=== PATIENT | female | born 1985 | race Caucasian/White ===

== ENCOUNTER 2017-12-11 15:31 | Outpatient (CLI) | payer MEDICAID, SELFPAY ==
[2017-12-11 16:31] LABS: Abs Immature Grans 0.01 k/cumm (0.0-0.09); Absolute Basophil Count 0.02 k/cumm (0.0-0.2); Absolute Eosinophil Count 0.04 k/cumm (0.0-0.7); Absolute Lymphocyte Count 1.44 k/cumm (1.2-3.4); Absolute Monocyte Count 0.35 k/cumm (0.11-0.7); Absolute Neutrophil Count 7.02 k/cumm (1.2-6.7); Basophils % 0.2; Eosinophils % 0.5; HCT 41.5 % (36.0-46.0); HGB 13.9 g/dL (12.0-15.5); Immature Grans % 0.1; Lymphocytes % 16.2; Mean Corp. HGB Concentration 33.5 g/dL (32.0-36.0); Mean Corpuscular Volume 92.4 fL (80-95); Mean Platelet Volume 10.5 fL (8.0-11.0); Monocytes % 3.9; Neutrophils % 79.1; Platelet Count 295 x1000/uL (130-400); RBC 4.49 m/cumm (4.00-5.20); RBC Distribution Width 12.9 % (11.7-14.6); White Blood Cell Count 8.88 k/cumm (4.4-10.8)
[2017-12-11 17:43] LABS: TSH (W/Ref FT4) 0.67 uIU/mL (0.358-3.74)
[2017-12-13 12:19] LABS: Hepatitis B Surface Ag Negative (NEGAT)
[2017-12-13 12:21] LABS: HIV-1/2 Ag & Ab Screen Negative (NEGAT)
[2017-12-13 12:30] LABS: Rubella IgG Ab (UVM) Negative
[2017-12-13 12:39] LABS: Syphilis Serology (RPR) Negative (Negative); Varicella IgG Antibody Positive
[2017-12-13 13:28] LABS: Hepatitis C Ab w Rflx HCV PCR Negative (NEGAT)
== END 2017-12-11 15:51 ==
PROVIDERS: PCP Naturopath; Visit Provider Obstetrics & Gynecology
DX: Z34.91 Encounter for supervision of normal pregnancy, unspecified, first trimester (principal); Z11.59 Encounter for screening for other viral diseases; Z01.84 Encounter for antibody response examination; Z11.4 Encounter for screening for human immunodeficiency virus [HIV]
CPT/HCPCS: 36415; 86787; 86803; 86850; 86900; 86901; 87340; 87389; 84443; 85025; 86592; 86762

== ENCOUNTER 2017-12-20 16:51 | Outpatient (REF) | payer MEDICAID, SELFPAY ==
--- NOTE | 2017-12-20 13:30 | PAPFT_PTH ---
PATIENT: Quin Durant LOC: [facility] U#:[id number] AGE/SX: 32/F ROOM: RE12/20/[address]: Tamar Vazquez CNM : 1985 BED: DIS: 12/20/2017 SPEC #: [id number] RECD: 12/20/17 17:56 STATUS: SULEIMANOctavio REStephen #: [id number] SHANTE: 12/20/17 13:[address]: Tamar Vazquez DEPT: [facility] Cytology RECD BY: Ingrid Powell ENTERED: 12/20/17 17:57 SP TYPE: PAPFT OTHR DR: Gayatri Cohen Tissues: 1 - CX/ENDOCX FOR PAP SMEARS Procedures: PAP THIN PREP/UVM Screening HPV DNA PROBE Comments: [id number]
[2017-12-20 17:49] LABS: Tricyclic Antidepressants Negative (Negative)
[2017-12-20 17:50] LABS: *AMPHETAMINES SCREEN URINE Negative (Negative); *BARBITURATES SCREEN URINE Negative (Negative); *BENZODIAZEPINES SCREEN URINE Negative (Negative); Cannabinoids THC Negative (Negative); Cocaine Screen,Urine Negative (Negative); METHADONE URINE SCREEN Negative (Negative); OPIATES URINE SCREEN Negative (Negative)
[2017-12-24 15:02] LABS: Chlamydia Result Negative; GC Result Negative; Specimen Description CERVIX
[2017-12-24 15:24] LABS: Buprenorphine Negative; Norbuprenorphine Negative
== END 2017-12-20 17:11 ==
LOC: LBN 16:51
PROVIDERS: PCP Naturopath; Visit Provider Advanced Practice Midwife
DX: Z12.4 Encounter for screening for malignant neoplasm of cervix (principal); Z11.51 Encounter for screening for human papillomavirus (HPV); Z11.3 Encounter for screening for infections with a predominantly sexual mode of transmission; Z34.91 Encounter for supervision of normal pregnancy, unspecified, first trimester
CPT/HCPCS: 80307; 87491; 87591; 88142; 87086; 87624

== ENCOUNTER 2018-02-11 15:56 | Outpatient (CLI) | payer MEDICAID, SELFPAY ==
[2018-02-13 15:44] LABS: AFP 37.8 ng/mL; Cigarette smoking status non-smoker; GA used in risk estimate Scan estimate; INHIBIN 74 pg/mL; IVF Pregnancy No; Initial or repeat testing Initial testing; Insulin dependent diabetes No; Maternal Weight 145 lbs; Number of Fetuses 1; Physician Phone Number 802-748-7300; Prev Down(T21)/Trisomy Pregnan No; Prev Pregnancy w/NTD No; RECOMMENDED FOLLOW UP None.; Results Summary Normal risk; hCG, TOTAL 8.7 IU/mL; hCG, TOTAL MoM 0.38 MoM; uE3 1.79 ng/mL; uE3 MoM 1.19 MoM
== END 2018-02-11 16:16 ==
PROVIDERS: PCP Naturopath; Visit Provider Advanced Practice Midwife
DX: Z34.92 Encounter for supervision of normal pregnancy, unspecified, second trimester (principal); Z36.89 Encounter for other specified antenatal screening
CPT/HCPCS: 36415; 81511

== ENCOUNTER 2018-02-15 00:24 | Outpatient (CLI) | payer MEDICAID, SELFPAY ==
--- NOTE | 2018-02-15 15:36 | DI.US_ITS ---
SYMPTOM/DIAGNOSIS: 18 WEEK ANATOMY, WEEK OF 02/10 OB ULTRASOUND: There is a single living intrauterine gestation. Estimated sonographic age is 18 weeks 6 days. No or placental abnormalities are identified. IMPRESSION: Single living intrauterine gestation. Estimated sonographic age is 18 weeks 6 days. Many abnormalities cannot be diagnosed. A normal exam does not exclude a congenital anomaly. Radiology No. [id number] LMP: 10/06/17 Exam Date: [facility] wks days on EDC ([facility]) 07/13/18 Confirmed: HISTORY: SURVEY ---- PREDICTED GESTATIONAL AGE NUMBER 18 +6 weeks with a range of 17 +6 week to 19 +6 weeks. 1 Determined by_XX__1STUS___LMP___HISTORY Info. pertaining to fetus # PLACENTA PRESENTATION Grade 1 Cephalic___ Anterior___Posterior_XX__ Breech____ Right Left Transverse(head right___ Fundal___Low-lying___Previa___ Transverse(head left___ Varying___XX___ BIOMETRY AMNIOTIC FLUID BPD: 42 mm 18 +6 weeks HC: 159 mm 18 +5 weeks AC: 141 mm 19 +3 weeks FL: 28 mm 18 +4 weeks AMNIOTIC FLUID INDEX >26 WK CRL: -- mm -- weeks Cisterna Magna: 3.0 mm CI: 77 RUQ: LUQ Cerebellum: 1.8 cm EFW: 270 +/- 40 grams -- Percentile RLQ: LLQ Total: cms Composite AGE= 18 +6 wks EDC by US__07/13/18 BIOPHYSICAL PROFILE ANATOMY IDENTIFIED SCORE 0/2 Heart: 4-Chamber__XX_Rate:BPM_160 BPM____ LVOT:__X RVOT:___X____ Amniotic Fluid(>2cms)____ Stomach:___X____ Kidneys:__X Respirations (>30 secs) Bladder:___X Post. Fossa:__X Body Flex/Extension 3 vessel cord:__X____Ventricles:___X cord insertion:__X___ Lips:__X__ Extremity Flex/Extension spinal morphology:__X Nose:X Total Score= Palate:__X NS=not seen
== END 2018-02-15 00:44 ==
PROVIDERS: PCP Naturopath; Visit Provider Nurse Practitioner
DX: Z34.92 Encounter for supervision of normal pregnancy, unspecified, second trimester (principal)
CPT/HCPCS: 76805

== ENCOUNTER 2018-05-07 09:24 | Outpatient (CLI) | payer MEDICAID, SELFPAY ==
[2018-05-07 10:01] LABS: Glucose,1 Hr (Glucola) 103 mg/dL (80-140)
[2018-05-07 10:02] LABS: HCT 35.5 % (36.0-46.0); HGB 11.6 g/dL (12.0-15.5); Mean Corp. HGB Concentration 32.7 g/dL (32.0-36.0); Mean Corpuscular Hemoglobin 31.1 pg (27.0-33.0); Mean Corpuscular Volume 95.2 fL (80-95); Mean Platelet Volume 9.6 fL (8.0-11.0); Platelet Count 260 x1000/uL (130-400); RBC 3.73 m/cumm (4.00-5.20); White Blood Cell Count 7.44 k/cumm (4.4-10.8)
== END 2018-05-07 09:44 ==
PROVIDERS: PCP Naturopath; Visit Provider Advanced Practice Midwife
DX: Z34.93 Encounter for supervision of normal pregnancy, unspecified, third trimester (principal)
CPT/HCPCS: 36415; 82950; 85027

== ENCOUNTER 2018-05-21 11:57 | Outpatient (REF) | payer MEDICAID, SELFPAY | END 2018-05-21 12:17 | LOC: LBN 11:57 | PROVIDERS: PCP Naturopath; Visit Provider Advanced Practice Midwife | DX: N76.0 Acute vaginitis (principal) | CPT/HCPCS: 87480; 87510; 87660 ==

== ENCOUNTER 2018-06-24 16:15 | Outpatient (REF) | payer MEDICAID, SELFPAY | END 2018-06-24 16:35 | LOC: LBN 16:15 | PROVIDERS: PCP Naturopath; Visit Provider Advanced Practice Midwife | DX: Z34.93 Encounter for supervision of normal pregnancy, unspecified, third trimester (principal); Z36.85 Encounter for antenatal screening for Streptococcus B | CPT/HCPCS: 87081 ==

== ENCOUNTER 2018-07-05 07:59 | Inpatient (IN) | payer MEDICAID, SELFPAY ==
[2018-07-05 08:38] LABS: HCT 35.3 % (36.0-46.0); HGB 11.5 g/dL (12.0-15.5); Mean Corp. HGB Concentration 32.6 g/dL (32.0-36.0); Mean Corpuscular Hemoglobin 29.6 pg (27.0-33.0); Mean Corpuscular Volume 90.7 fL (80-95); Mean Platelet Volume 10.2 fL (8.0-11.0); Platelet Count 246 x1000/uL (130-400); RBC 3.89 m/cumm (4.00-5.20); RBC Distribution Width 13.2 % (11.7-14.6); White Blood Cell Count 8.48 k/cumm (4.4-10.8)
[2018-07-05] MEDS: Lidocaine 1% Pres-Free 5 ML VIAL (09:40)
[2018-07-05] MEDS: Ibuprofen 600 MG TAB PO ×2 (11:26→16:48)
[2018-07-05] MEDS: Acetaminophen 325 MG TAB 650 MG PO ×2 (11:27→16:48)
[2018-07-06] MEDS: Ibuprofen 600 MG TAB PO (05:57)
== END 2018-07-06 13:15 | disposition home or self-care (01) | DRG 807 ==
PROVIDERS: Admitting Provider Advanced Practice Midwife; PCP Naturopath; Visit Provider Advanced Practice Midwife
DX: O70.0 First degree perineal laceration during delivery (principal); Z37.0 Single live birth; O87.4 Varicose veins of lower extremity in the puerperium; Z3A.39 39 weeks gestation of pregnancy
CPT/HCPCS: 36415; 85027; 86850; 86900; 86901

== ENCOUNTER 2018-08-15 16:15 | Outpatient (REF) | payer MEDICAID, SELFPAY ==
--- NOTE | 2018-08-15 11:20 | PAPFT_PTH ---
PATIENT: Quin Durant LOC: [facility] U#:[id number] AGE/SX: 32/F ROOM: RE08/15/[address]: Suzanne Emery RN : 1985 BED: DIS: 08/15/2018 SPEC #: [id number] RECD: 08/15/18 17:53 STATUS: TATO REQ #: [id number] SHANTE: 08/15/18 11:[address]: Suzanne Emery DEPT: [facility]–1983 Cytology RECD BY: Ingrid Powell ENTERED: 08/15/18 17:53 SP TYPE: PAPFT OTHR DR: Gayatir Cohen Tissues: 1 - CX/ENDOCX FOR PAP SMEARS Procedures: PAP THIN PREP/UVM Screening HPV DNA PROBE Comments: [id number]
== END 2018-08-15 16:35 ==
LOC: LBN 16:15
PROVIDERS: PCP Naturopath; Visit Provider Advanced Practice Midwife
DX: Z12.4 Encounter for screening for malignant neoplasm of cervix (principal); Z11.51 Encounter for screening for human papillomavirus (HPV)
CPT/HCPCS: 88142; 87624

== ENCOUNTER 2020-04-12 15:19 | Outpatient (REF) | payer OTHER, SELFPAY ==
[2020-04-12 19:29] LABS: ALT 25 U/L (14-59); AST 14 U/L (15-37); Albumin 4.8 g/dL (3.4-5.0); Alkaline Phosphatase 52 U/L (46-116); Bilirubin, Direct 0.11 mg/dL (0.00-0.20); Bilirubin, Total 0.6 mg/dL (0.2-1.0); Total Protein 8.1 g/dL (6.4-8.2)
== END 2020-04-12 15:39 ==
LOC: NCHCN 15:19
PROVIDERS: PCP Naturopath; Visit Provider Nurse Practitioner Family
DX: Z02.89 Encounter for other administrative examinations (principal)
CPT/HCPCS: 80076

== ENCOUNTER → 2021-04-14 02:42 | Outpatient (CLI) | payer OTHER, SELFPAY ==
--- NOTE | 2021-04-14 | DI.US_ITS ---
Exam(s) US BREAST RT COMPLETE [facility] MAMMO DIAGNOSTIC BI EXAM: [facility] MAMMO DIAGNOSTIC BI and U/S breast RT complete CLINICAL HISTORY: RT BREAST LUMP, N63.0. TECHNIQUE: Craniocaudal and mediolateral oblique Full Field Digital Mammography views of the bilat b reast with Computer Aided Diagnosis followed by Tomosynthesis and right breast ultrasound. COMPARISON: No previous for comparison. FINDINGS: Mammography/Tomosynthesis: Masses/Architectural Distortion: None seen. Microcalcifictions: No suspicious pleomorphic-type are seen. Skin Thickening/Nipple Retraction: None. Right complete breast US: Echotexture: Normal appearance of the glandular tissue. Shadowing: No suspicious foci. Cyst: 0.5 cm simple cyst at the 9 o'clock position of the right breast 3 cm from the nipple. Solid lesions: None seen. Ductal dilation: None. IMPRESSION: 1. No evidence of malignancy is noted. 2. Unless there is more urgent need, follow-up screening mammography is recommended, as per [place] [employer] guidelines. 3. The findings were discussed with the patient on the date of the examination. BI-RADS Category 2 - Benign Findings Breast Density - Category C - Heterogeneously dense Breast density Category C or D implies that the patient has dense breast tissue. Dense breast tissue can make it harder to find cancer on a mammogram. Dense breast tissue is also associated with an incr eased risk of breast cancer. This information about the result of the mammogram report was provided to the patient to raise their awareness. Use this report when you speak with the patient about their risks for breast cancer, which includes their family history. At that time, you may recommend additional screening tests (Ultrasoun d or MRI) as these tests may add significant information. A negative radiographic report should not delay biopsy if a dominant or clinically suspicious mass is present. Up to ten percent of cancers are not identified on mammography. A negative report may reinforce clinical impression. Adenosis and dense breasts may obscure an underlying neoplasm. False positive reports average 6 to 10%. Patient will receive a letter notifying them of these results.
== END ==
PROVIDERS: PCP Naturopath; Visit Provider Nurse Practitioner Family
DX: N63.11 Unspecified lump in the right breast, upper outer quadrant (principal); N60.01 Solitary cyst of right breast
CPT/HCPCS: 76642; 77062; 77066; G0279

== ENCOUNTER 2021-05-17 03:43 | Outpatient (CLI) | payer OTHER, SELFPAY ==
[2021-05-19 15:01] LABS: TB Interpretation Negative (Negative)
== END 2021-05-17 03:44 | disposition home or self-care (01) ==
LOC: LBO 03:43
PROVIDERS: PCP Naturopath; Visit Provider Nurse Practitioner Family
DX: Z20.1 Contact with and (suspected) exposure to tuberculosis (principal)
CPT/HCPCS: 36415; 86480